=== PATIENT | male | born 1990 | race Caucasian/White ===

== ENCOUNTER 2022-01-06 16:02 | Emergency (ER) | payer OTHER ==
[~2022-01-06] VITALS: Ht 160 cm; Wt 69.0 kg
[~2022-01-06 16:02] MED LIST: LISINOPRIL20 MG PO
[2022-01-06] MEDS ORDERED: PAXLOVID CO-PA1 EAC1 PO (18:25)
== END 2022-01-06 18:38 | disposition home or self-care (01) ==
LOC: ED 16:02
DX: U07.1 COVID-19 (principal); I10 Essential (primary) hypertension; Z88.5 Allergy status to narcotic agent; Z79.899 Other long term (current) drug therapy
CPT/HCPCS: 87502; U0003

== ENCOUNTER 2025-04-17 18:11 | Emergency (ER) | payer OTHER | END 2025-04-18 00:01 | disposition home or self-care (01) | LOC: ED 18:11 | DX: R07.9 Chest pain, unspecified (principal); I10 Essential (primary) hypertension; Z88.5 Allergy status to narcotic agent; Z79.899 Other long term (current) drug therapy ==